=== PATIENT | male | born 1995 | race Caucasian/White ===

== ENCOUNTER 2017-06-20 12:58 | Emergency (ER) | payer MEDICAID ==
[~2017-06-20] VITALS: Ht 172.7 cm; Wt 89.4 kg
[2017-06-20 14:51] VITALS: BP 138/83
--- NOTE | 2017-06-20 15:34 | NUR ---
C/O SPIDER BITE LT FOREARM PAIN 04/02 AT [facility] 2 DAYS AGO; PER PT DRAINED PUS; HARDEND ERYTHEMA AROUND PUNCTURE SITE
[2017-06-20] MEDS ORDERED: SULFAMETH/TRIMETH DS 800/160MG 1 TAB PO ONE (16:05)
[2017-06-20] MEDS ORDERED: IBUPROFEN 800 MG TAB PO ONE (16:05)
--- NOTE | 2017-06-20 16:30 | NUR ---
Patient discharged with v/s stable. Written and verbal after care instructions given and explained. Patient alert, oriented and verbalized understanding of instructions. Ambulatory with steady gait. All questions addressed prior to discharge. ID band removed. Patient advised to follow up with PMD. Rx of MOTRIN, BACTRIM&KEFLEX given. Patient educated on indication of medication including possible reaction and side effects. Opportunity to ask questions provided and answered.
[2017-06-20 16:46] VITALS: BP 138/83
== END 2017-06-20 16:30 | disposition home or self-care (01) ==
LOC: MED 12:58
DX: L03.114 Cellulitis of left upper limb (principal)
CPT/HCPCS: 99283

== ENCOUNTER 2018-03-14 16:59 | Emergency (ER) | payer MEDICAID ==
[~2018-03-14] VITALS: Ht 172.7 cm; Wt 89.8 kg
[2018-03-14 17:07] VITALS: BP 139/97
--- NOTE | 2018-03-14 17:12 | NUR ---
23 YO M BIB GF W/ C/O MOUTH PAIN/ABSCESS X TODAY. PT REPORTS THAT HE THOUGHT IT WAS A PIMPLE TO HIS CHIN, PT POPPED PIMPLE AND HIS LIP STARTED SWELLING AROUND THE SITE. PT REPORTS THAT HE FEELS FEVERISH. NO FEVER AT THIS TIME. PT STATES HE HAS TAKEN 3 ADVIL IN PAST 10 HOURS WITH NO RELIEF. PT REPORTS HEADACHE SINCE LAST NIGHT, HAS NOT BEEN EATING. DENIES N/V. HX DENIES RX DENIES
[2018-03-14] MEDS ORDERED: HYDROcodone/APAP 5/325 MG 1 TAB TAB PO ONE (17:50)
[2018-03-14] MEDS ORDERED: methylPREDNISolone SS 125 MG in WATER STERILE 2 ML IM ONE (17:50)
[2018-03-14] MEDS ORDERED: CLINDAMYCIN 600 MG/4 ML VIAL IM ONE (17:50)
[2018-03-14] MEDS ORDERED: KETOROLAC 60 MG/2 ML VIAL IM ONE (17:50)
--- NOTE | 2018-03-14 17:51 | NUR ---
Patient being evaluated by physician at bedside.
[2018-03-14 18:50] VITALS: BP 135/94
--- NOTE | 2018-03-14 18:50 | NUR ---
Patient discharged with v/s stable. Written and verbal after care instructions given and explained. Patient alert, oriented and verbalized understanding of instructions. Ambulatory with steady gait. All questions addressed prior to discharge. ID band removed. Patient advised to follow up with PMD. Rx of bactrium ds, clindamycin, and prednisione given. Patient educated on indication of medication including possible reaction and side effects. Opportunity to ask questions provided and answered.
== END 2018-03-14 18:50 | disposition home or self-care (01) ==
LOC: MED 16:59
DX: L03.211 Cellulitis of face (principal)
CPT/HCPCS: 96372; 99284; J1885; J2930; J3490

== ENCOUNTER 2021-01-14 12:30 | Emergency (ER) | payer MEDICAID ==
[~2021-01-14] VITALS: Ht 172.7 cm; Wt 99.0 kg
[2021-01-14 12:47] VITALS: BP 129/86
[2021-01-14] MEDS ORDERED: BACITRACIN OINT 500 UNITS/GM PKT TP ONE (13:30)
[2021-01-14] MEDS ORDERED: IBUPROFEN 600 MG TAB PO ONE (13:30)
[2021-01-14] MEDS ORDERED: LIDOCAINE MPF 1% 10 MG/ML VIAL INJ ONE ×2 (13:30)
--- NOTE | 2021-01-14 13:36 | NUR ---
25 Y/O MALE C/O LACERATION TO L THIGH XTHIS MORNING. PT FELL OFF BED AND HIT LEG ON METAL BED FRAME. UNKNOWN LAST TDAP. CONTROLLED BLEEDING. PT STATES 7/10 SHARP PAIN. PMH:DENIES NKDA
--- NOTE | 2021-01-14 13:36 | NUR ---
pt ambulated to bed 03.
--- NOTE | 2021-01-14 14:00 | NUR ---
Patient has a 8 cm laceration to LEFT LEG. EDVIN TOVAR applied sutures using sterile technique. Edges well approximated. Site cleansed with IODINE. No bleeding noted. Pt tolerated well.
[2021-01-14] MEDS ORDERED: IBUP-2213 PO (14:47)
[2021-01-14] MEDS ORDERED: BACI1PAC6 TP (14:47)
--- NOTE | 2021-01-14 14:50 | NUR ---
Patient discharged with v/s stable. Written and verbal after care instructions given and explained. Patient alert, oriented and verbalized understanding of instructions. Ambulatory with steady gait. All questions addressed prior to discharge. ID band removed. Patient advised to follow up with PMD in two days for wound check. Rx of Bacitracin and Ibuprofen given. Patient educated on indication of medication including possible reaction and side effects. Opportunity to ask questions provided and answered.
== END 2021-01-14 14:50 | disposition home or self-care (01) ==
LOC: MED 12:30
DX: S71.112A Laceration without foreign body, left thigh, initial encounter (principal); Z79.899 Other long term (current) drug therapy; W06.XXXA Fall from bed, initial encounter; Y93.89 Activity, other specified; Y92.89 Other specified places as the place of occurrence of the external cause; Y99.8 Other external cause status
CPT/HCPCS: 90471; 90715; 99283; J2001